=== PATIENT | male | born 1955 | race Caucasian/White ===

== ENCOUNTER 2018-05-06 22:53 | Emergency (ER) | payer SELFPAY ==
--- NOTE | 2018-05-06 23:09 | PDOC ---
Medical Decision Making - Medical Decision Making 05/06/18 23:08 Patient seen by the advanced practice provider under my direct supervision. Ancillary testing reviewed as necessary. I agree with plan as outlined by the advanced practice provider. *DC/Admit/Observation/Transfer Diagnosis at time of Disposition: Alcohol abuse, Head injury due to trauma - Discharge Dispostion Condition at time of disposition: Fair - Referrals - Patient Instructions - Post Discharge Activity
[2018-05-06 23:19] VITALS: BP 153/86; PULSE 68; TEMP 97; BMI 28.0
--- NOTE | 2018-05-06 23:23 | PDOC ---
History of Present Illness - General Chief Complaint: Injury Stated Complaint: FALL Time Seen by Provider: 05/06/18 23:05 History Source: Patient - History of Present Illness Initial Comments: 05/07/18 00:28 62-year-old male brought in by ambulance complaining of headache, as per partner patient has been drinking alcohol tonight. When patient got up and fell forward hitting right side of forehead with swelling to right eye brow. No other facial injury noted. Extraocular movement intact. As per partner who witnessed the fall reports that patient had brief moments of LOC after the head injury. Patient denies any drug use reports drinking alcohol every other day. 05/07/18 01:48 last tetanus unknown Past History - Past Medical History Allergies/Adverse Reactions: Allergies Allergy/AdvReac Type Severity Reaction Status Date / Time No Known Allergies Allergy Verified 05/06/18 23:19 Home Medications: Ambulatory Orders NK [No Known Home Medication] 05/07/18 - Suicide/Smoking/Psychosocial Hx Smoking History: Never smoked Have you smoked in the past 12 months: No Information on smoking cessation initiated: No Hx Alcohol Use: Yes Drug/Substance Use Hx: No Review of Systems - Review of Systems Able to Perform ROS?: Yes Is the patient limited Spanish proficient: No Constitutional: No: Symptoms Reported, See HPI, Chills, Diaphoresis, Fever, Loss of Appetite, Malaise, Night Sweats, Weakness, Weight Stable, Unintentional Wgt. Loss, Unexplained wgt Loss, Other Musculoskeletal: Yes: Other (head injury) *Physical Exam - Vital Signs Last Vital Signs Temp Pulse Resp BP Pulse Ox 97 F L 68 20 153/86 97 05/06/18 22:53 05/06/18 22:53 05/06/18 22:53 05/06/18 22:53 05/06/18 22:53 - Physical Exam General Appearance: Yes: Appropriately Dressed, Alcohol on Breath HEENT: positive: Other (hematoma to right side of fore head, right eyebrow edema positive upper orbital tenderness. Visual acuity intact. EOM intact PERRLA ) Neck: positive: Other (no midline tendernes). negative: Tender lateral, Tender midline Respiratory/Chest: positive: Lungs Clear Gastrointestinal/Abdominal: positive: Normal Bowel Sounds, Soft Neurologic: positive: Alert, Other (slight slurred speech) Moderate Sedation - Procedure Monitoring Vital Signs: Procedure Monitoring Vital Signs Temperature 97 F L 05/06/18 22:53 Pulse Rate 68 05/06/18 22:53 Respiratory Rate 20 05/06/18 22:53 Blood Pressure 153/86 05/06/18 22:53 O2 Sat by Pulse Oximetry (%) 97 05/06/18 22:53 Progress Note - Progress Note Progress Note: A: Head injury P: CThead CT facial bones CT neck Alcohol level Will await sobriety to clear C-spine Medical Decision Making - Medical Decision Making 05/07/18 02:30 No acute maxillofacial fracture. Moderate right periorbital soft tissue edema/hematoma. No acute intraorbital injury. Mild bilateral ethmoid and maxillary chronic sinus changes. Large defect in the anterior-inferior nasal septum. c-spine: Mild straightening of the cervical lordosis with grossly normal alignment. Moderate degenerative changes noted. No acute cervical spine fracture or dislocation. Emphysematous changes and fibrotic changes in lung apices. head: There is cerebral atrophy. Chronic microvascular ischemic changes are noted. No acute intracranial hemorrhage or acute infarction. The visualized aspect of the paranasal sinuses and mastoid air cells are remarkable for bilateral ethmoid chronic sinus changes. No acute fracture. Moderate right periorbital soft tissue edema/hematoma. 05/07/18 02:32 patient alert awake. eating a sandwich and drinking water. 05/07/18 03:53 Patient is awake, walking around. 05/07/18 05:41 patient alwert awake,. drinking water. to be d/c home with partner. partner Guillaume kitchen is at bedside. *DC/Admit/Observation/Transfer Diagnosis at time of Disposition: Alcohol abuse Head injury due to trauma Qualifiers: Encounter type: initial encounter Qualified Code(s): S09.90XA - Unspecified injury of head, initial encounter - Discharge Dispostion Condition at time of disposition: Fair - Referrals - Patient Instructions Printed Discharge Instructions: DI for Closed Head Injury Additional Instructions: avoid drinking alcohol rest and relax as much as possible. follow up with your doctor as soon as possible return to the ER if symptoms worsen, - Post Discharge Activity Forms/Work/School Notes: Back to Work
[2018-05-07] MEDS ORDERED: TETANUS AND DIPHTHERIA TOXOID 0.5 ML DISP.SYRIN IM ONE (01:48)
[2018-05-07] MEDS ORDERED: DIPHTH,PERTUSS(ACELL),TET 0.5 ML DISP.SYRIN IM ONE (02:14)
== END 2018-05-07 05:45 | disposition home or self-care (01) ==
LOC: JER 22:53
PROC: 3E0234Z Introduction of Serum, Toxoid and Vaccine into Muscle, Percutaneous Approach (ICD-10-PCS; principal; 2018-05-06)
DX: F10.120 Alcohol abuse with intoxication, uncomplicated (principal); S00.83XA Contusion of other part of head, initial encounter; S05.11XA Contusion of eyeball and orbital tissues, right eye, initial encounter; W18.39XA Other fall on same level, initial encounter; Y93.89 Activity, other specified; Y92.038 Other place in apartment as the place of occurrence of the external cause; Y99.8 Other external cause status; Y90.8 Blood alcohol level of 240 mg/100 ml or more
CPT/HCPCS: 36415; 70450-TC; 70486-TC; 72125-TC; 80307; 99281-25